=== PATIENT | male | born 1975 | race Caucasian/White ===

== ENCOUNTER 2019-11-20 12:08 | Emergency (ER) | payer BC ==
--- NOTE | 2019-11-20 12:48 | EDM.PDOC ---
ED HPI GENERAL MEDICAL PROBLEM - General Chief Complaint: Eye Problems Stated Complaint: SOMETHING IN RIGHT EYE Time Seen by Provider: 11/20/19 12:27 Source of Information: Reports: Patient History Limitations: Reports: No Limitations - History of Present Illness INITIAL COMMENTS - FREE TEXT/NARRATIVE: 44-year-old male presents to the ED with foreign body sensation in his right eye for the last 3 days. He states that he was grinding metal presumably aluminum 3 days ago and he felt something enter his right eye. He had coworkers look and they could not see any foreign body in his eye. He continues to have severe photosensitivity to sun excessive pain particularly to the lateral upper aspect of his eyelid on the right side. No change in visual acuity. Appreciates the whole eye seems to becoming more redder. No purulent discharge appreciated. Onset: Sudden Onset Date: 11/17/19 Onset Time: 17:00 Duration: Day(s):, Getting Worse Location: Reports: Face Quality: Reports: Ache (Foreign body sensation right eye for the last 3 days.), Sharp, Stabbing, Other Severity: Moderate (Stent pain) Improves with: Reports: None Worsens with: Reports: None Context: Reports: Trauma (Likely occurred from grinding metal 3 days ago.). Denies: Activity, Exercise, Lifting, Sick Contact Associated Symptoms: Reports: Other (Sense of eye tearing. Excessive eye redness. No change in visual acuity) Treatments CLOTH STRETCHER: Reports: NSAIDS Social & Family History - Living Situation & Occupation Occupation: Employed ED ROS GENERAL - Review of Systems Review Of Systems: See Below Constitutional: Reports: Fatigue. Denies: Fever, Chills, Malaise, Weakness HEENT: Reports: Eye Discharge ( Body sensation persistent x3 days right eye.), Eye Pain (Not sleeping the last 2 nights due to eye pain.), Other ( This of tearing from the right eye.) Respiratory: Reports: No Symptoms ( Eye photosensitivity.) Cardiovascular: Reports: No Symptoms Endocrine: Reports: No Symptoms GI/Abdominal: Reports: No Symptoms : Reports: No Symptoms Musculoskeletal: Reports: Back Pain Skin: Reports: No Symptoms (Occasional problems with low back pain) Neurological: Reports: No Symptoms Psychiatric: Reports: No Symptoms Hematologic/Lymphatic: Reports: No Symptoms Immunologic: Reports: No Symptoms ED EXAM GENERAL W FULL EYE - Physical Exam Exam: See Below Exam Limited By: No Limitations General Appearance: Alert, WD/WN, No Apparent Distress, Other (Right eye is obviously very erythematous and the conjunctiva as compared to the left. ) Eye Exam: Right Eye: Conjunctival Injection (Marked), Foreign Body (Large black foreign body identified very close to the center of the cornea at the 3 o'clock position.), Bilateral Eye: PERRL Eyelids: Right: Erythema (Both lower and upper eyelids are very erythematous without exudate on examination.), Lid Everted for Exam (Foreign bodies identified.) Conjunctiva & Sclera: Right: Injected (Both laterally and medially.) Cornea Exam: Right: Foreign Body (Fairly large 1 to 2 mm black foreign body identified embedded in the cornea near the central of the cornea at the 3 o'clock position.) Extraocular Movements: Bilateral: Intact Pupils: Normal Accommodation Pupillary Size: Bilateral: 6 mm Pupillary Reaction: Bilateral: Brisk Anterior Chamber: Right: Normal Appearance ED EYE w/ Add Procedure - Eye Procedure Alcaine Drops Administered: Yes Eye FB Removal: Removal w/ Needle (Removed with the tip of a 25-gauge 5/8 inch needle. It came out in 3 piece) Antibiotic Oinment/Drps Admin: Right Eye (Pro-Floxin eyedrops and ketorolac eyedrops.) Progress: Residual rust ring/deposit of foreign body in a ring fashion after removal of the central portion of the foreign body was present on slit-lamp exam. I used the bur to remove the residual contaminated epithelium completely. I was able to do this without the need for slit-lamp. Patient will be treated with ketorolac eyedrops 2 drops now and then 5 minutes she will receive 2 drops of Cipro Floxin eyedrops to prevent secondary infection. The eyes to be double patch closed until tomorrow morning. He will remove it only to place drops every 6 hours. He will use the ketorolac drops 2 drops to the right eye every 6 hours for the next day. This was for relief of pain and inflammation Cipro ophthalmic drops 2 drops every 8 hours for the next 2 and half days to prevent secondary infection. Follow-up if not completely back to normal in 36 hours time with us or payroll tax analyst. Course - Orders/Labs/Meds Meds: Medications Discontinued Medications Generic Name Dose Route Start Last Admin Trade Name Freq PRN Reason Stop Dose Admin Ciprofloxacin 2.5 ml 11/20/19 12:52 Ciloxan 0.3% Ophth Soln EYERT 11/20/19 12:53 ONETIME ONE Ketorolac Tromethamine 3 ml 11/20/19 12:51 Acular 0.5% Ophth Soln EYERT 11/20/19 12:52 ONETIME ONE - Radiology Interpretation Free Text/Narrative:: 44-year-old male presents to the ED with foreign body sensation right eye for the last 3 days. He was grinding metal presumably aluminum at the time he felt something enter his eye. His coworkers could not identify any foreign body in the eye. The eye is continued to hurt him since that time and has interfered with his ability to sleep for the last 2 days. On examination the conjunctiva is erythematous as are both the blepharal margins of the upper and lower eyelids with no other foreign bodies identified. A black foreign body was identified near the center of the cornea at the 3 o'clock position. It was removed with the aid of days and 25-gauge needle in pieces. Suggest that this may be part of the grinding blade that actually entered his eye. There was a residual contaminated ring around the center after I remove the foreign body that was burred away with the eye felix. It was burred away completely. Patient be p laced on ketorolac eyedrops 2 drops every 6 hours necessary for relief of pain and Cipro ophthalmic drops 2 drops every 8 hours for the next 2 and half days to prevent secondary infection. Follow-up in 36 hours if not completely back to normal Departure - Departure Time of Disposition: 12:53 Disposition: Home, Self-Care 01 Condition: Fair Clinical Impression: Foreign body in cornea, right eye, initial encounter Corneal abrasion, right Qualifiers: Encounter type: initial encounter Qualified Code(s): S05.01XA - Injury of conjunctiva and corneal abrasion without foreign body, right eye, initial encounter - Discharge Information Referrals: PCP,None [Primary Care Provider] - Forms: ED Department Discharge Additional Instructions: Evaluation in the emergency room today in regards to foreign body sensation in your right eye for the last 3 days. You appreciated something probably got in your eye while grinding aluminum 3 days ago. The eyes become increasingly red and painful with inability to sleep for the last 2 nights due to pain with excessive tearing. Examination reveals a large black foreign body embedded in the cornea near the central part at the 3 o'clock position. It was removed with the aid of a tip of a needle under local anesthetic. A residual rust ring was evident and it was burred away with the eye bur. The residual deficit is called a corneal abrasion like a crater. He will heal over the next 24 to 36 hours. Suggest double eye patching her eye closed for the remainder of the day and remove the patch in the morning. Patch to be removed to the only place eyedrops. Suggest use of ketorolac eyedrops 2 drops to the right eye every 6 hours to relieve pain and inflammation. Usually this is required for the first 24 hours. Second medication is antibiotic eyedrop Cipro used 2 drops every 8 hours for the next 2-1/2 days to prevent any secondary infection. You should be back to normal within 36 hours if not you should be reviewed either in the ED or by eye doctor.
[2019-11-20] MEDS ORDERED: Ketorolac 0.5% Ophth Soln 5 ML Bottle EYERT ONE (12:51)
[2019-11-20] MEDS ORDERED: Ciprofloxacin 0.3% Ophth Soln 5 ML Bottle EYERT ONE (12:52)
== END 2019-11-20 13:05 | disposition home or self-care (01) ==
LOC: JD.ED 12:08
DX: T15.01XA Foreign body in cornea, right eye, initial encounter (principal)
CPT/HCPCS: 65222; 99283; A9270; 99282